=== PATIENT | female | born 1965 | race Caucasian/White ===

== ENCOUNTER 2019-03-09 11:35 | Emergency (ER) | payer BC ==
--- NOTE | 2019-03-09 12:18 | ER Document Report ---
ED General - General Chief Complaint: Cough Stated Complaint: COUGH Time Seen by Provider: 03/09/19 12:05 Primary Care Provider: ZORAIDA CONWAY MD [Primary Care Provider] - Follow up as needed TRAVEL OUTSIDE OF THE [place] IN LAST 30 DAYS: No - HPI Notes: Patient presents from [place] for routine check and was sent to the emergency department for concern of cough congestion that started 2 weeks ago. Patient was recently in [place] and [place] 2 weeks ago he developed a fever with cough congestion that has been improving since that time. They had a fever 2 weeks ago and not since. No recent fevers chills fatigue or weakness. Still have mild intermittent coughing with yellow sputum production but otherwise has been improving over the last 2 weeks. No shortness of breath or chest pain - Related Data Allergies/Adverse Reactions: No Known Allergies Allergy (Verified 03/09/19 11:56) Past Medical History - Social History Smoking Status: Never Smoker Chew tobacco use (# tins/day): No Frequency of alcohol use: Occasional Drug Abuse: None Family History: Reviewed & Not Pertinent Patient has suicidal ideation: No Patient has homicidal ideation: No Renal/ Medical History: Denies: Hx Peritoneal Dialysis Past Surgical History: Reports: Hx Orthopedic Surgery - left knee arthroscopy Review of Systems - Review of Systems Constitutional: No symptoms reported EENT: No symptoms reported Cardiovascular: No symptoms reported Respiratory: See HPI Gastrointestinal: No symptoms reported Genitourinary: No symptoms reported Female Genitourinary: No symptoms reported Musculoskeletal: No symptoms reported Skin: No symptoms reported Hematologic/Lymphatic: No symptoms reported Neurological/Psychological: No symptoms reported Physical Exam - Vital signs Vitals: Temp Pulse Resp BP Pulse Ox 98.1 F 56 L 16 111/80 97 03/09/19 11:40 03/09/19 11:40 03/09/19 11:40 03/09/19 11:40 03/09/19 11:40 - General General appearance: Appears well, Alert - HEENT Head: Normocephalic, Atraumatic - Respiratory Respiratory status: No respiratory distress, Retractions Breath sounds: Normal Chest palpation: Normal - Cardiovascular Rhythm: Regular Heart sounds: Normal auscultation Murmur: No - Abdominal Inspection: Normal Distension: No distension - Back Back: Normal - Extremities General upper extremity: Normal inspection General lower extremity: Normal inspection Course - Re-evaluation Re-evalutation: 03/09/19 13:17 Patient found to have pneumonia on x-ray. Will provide 7 days of Levaquin with PCP follow-up. Return precautions provided - Vital Signs Vital signs: Temp Pulse Resp BP Pulse Ox 98.3 F 54 L 18 98/65 L 100 03/09/19 13:34 03/09/19 13:34 03/09/19 13:34 03/09/19 13:34 03/09/19 13:34 Discharge - Discharge Clinical Impression: Pneumonia Qualifiers: Pneumonia type: due to unspecified organism Laterality: unspecified laterality Lung location: unspecified part of lung Qualified Code(s): J18.9 - Pneumonia, unspecified organism Disposition: HOME, SELF-CARE Instructions: Pneumonia (OM) Prescriptions: Levofloxacin [Levaquin 750 mg Tablet] 750 mg PO DAILY #7 tablet Referrals: ZORAIDA CONWAY MD [Primary Care Provider] - Follow up as needed
--- NOTE | 2019-03-09 12:35 | RADIOLOGY REPORT (SQ) ---
EXAM DESCRIPTION: CHEST 2 VIEWS COMPLETED DATE/TIME: 03/09/2019 12:24 pm REASON FOR STUDY: cough/congestion COMPARISON: None. EXAM PARAMETERS: NUMBER OF VIEWS: two views TECHNIQUE: Digital Frontal and Lateral radiographic views of the chest acquired. RADIATION DOSE: NA LIMITATIONS: none FINDINGS: LUNGS AND PLEURA: There is patchy asymmetric airspace disease in the right base consistent with pneumonia. Lung michaels are otherwise clear. MEDIASTINUM AND HILAR STRUCTURES: No masses or contour abnormalities. HEART AND VASCULAR STRUCTURES: Heart normal size. No evidence for failure. BONES: No acute findings. HARDWARE: None in the chest. OTHER: No other significant finding. IMPRESSION: Patchy asymmetric airspace disease in the right lower lobe consistent with pneumonia. TECHNICAL DOCUMENTATION: JOB ID: [id number] [employer]- All Rights Reserved Reading location - IP/workstation name: [email or web address]
[2019-03-09 13:35] VITALS: BP 98/65
== END 2019-03-09 13:39 | disposition home or self-care (01) ==
LOC: ER 11:35
DX: J18.9 Pneumonia, unspecified organism (principal); R05 Cough; R09.81 Nasal congestion; R50.9 Fever, unspecified
CPT/HCPCS: 71046; 99283